=== PATIENT | female | born 1945 | race Caucasian/White ===

== ENCOUNTER 2021-02-24 08:20 | Outpatient (CLI) | payer MEDICARE ==
[2021-02-24] MEDS ORDERED: LIDOCAINE SOLN 4% 50 ML BOTTLE ONE (08:50)
== END 2021-02-24 23:59 | disposition home health service (06) ==
LOC: WOU 08:20
PROVIDERS: ATTEND Surgery
DX: S21.002D Unspecified open wound of left breast, subsequent encounter (principal); X58.XXXD Exposure to other specified factors, subsequent encounter; L59.8 Other specified disorders of the skin and subcutaneous tissue related to radiation; I89.0 Lymphedema, not elsewhere classified; Z85.3 Personal history of malignant neoplasm of breast
CPT/HCPCS: G0463

== ENCOUNTER 2021-03-10 08:10 | Outpatient (CLI) | payer MEDICARE | END 2021-03-10 23:59 | disposition home health service (06) | LOC: WOU 08:10 | PROVIDERS: ATTEND Surgery | DX: S21.002D Unspecified open wound of left breast, subsequent encounter (principal); Y84.2 Radiological procedure and radiotherapy as the cause of abnormal reaction of the patient, or of later complication, without mention of misadventure at the time of the procedure; L59.8 Other specified disorders of the skin and subcutaneous tissue related to radiation; I89.0 Lymphedema, not elsewhere classified; Z85.3 Personal history of malignant neoplasm of breast | CPT/HCPCS: G0463 ==

== ENCOUNTER 2021-03-24 08:40 | Outpatient (CLI) | payer MEDICARE | END 2021-03-24 23:59 | disposition home health service (06) | LOC: WOU 08:40 | PROVIDERS: ATTEND Surgery | DX: S21.002D Unspecified open wound of left breast, subsequent encounter (principal); Y84.2 Radiological procedure and radiotherapy as the cause of abnormal reaction of the patient, or of later complication, without mention of misadventure at the time of the procedure; L59.8 Other specified disorders of the skin and subcutaneous tissue related to radiation; I89.0 Lymphedema, not elsewhere classified; Z85.3 Personal history of malignant neoplasm of breast | CPT/HCPCS: G0463 ==

== ENCOUNTER 2021-04-07 08:30 | Outpatient (CLI) | payer MEDICARE | END 2021-04-07 23:59 | disposition home or self-care (01) | LOC: WOU 08:30 | PROVIDERS: ATTEND Surgery | DX: Z08 Encounter for follow-up examination after completed treatment for malignant neoplasm (principal); L59.8 Other specified disorders of the skin and subcutaneous tissue related to radiation; I89.0 Lymphedema, not elsewhere classified; Z85.3 Personal history of malignant neoplasm of breast; Z87.891 Personal history of nicotine dependence | CPT/HCPCS: G0463 ==

== ENCOUNTER 2021-05-05 08:20 | Outpatient (CLI) | payer MEDICARE | END 2021-05-05 23:59 | disposition home health service (06) | LOC: WOU 08:20 | PROVIDERS: ATTEND Surgery | DX: I89.0 Lymphedema, not elsewhere classified (principal); L59.8 Other specified disorders of the skin and subcutaneous tissue related to radiation; Z85.3 Personal history of malignant neoplasm of breast | CPT/HCPCS: G0463 ==

== ENCOUNTER 2021-07-07 08:30 | Outpatient (CLI) | payer MEDICARE | END 2021-07-07 23:59 | disposition home health service (06) | LOC: WOU 08:30 | PROVIDERS: ATTEND Surgery | DX: Z08 Encounter for follow-up examination after completed treatment for malignant neoplasm (principal); S21.002A Unspecified open wound of left breast, initial encounter; L59.8 Other specified disorders of the skin and subcutaneous tissue related to radiation; X58.XXXA Exposure to other specified factors, initial encounter; I89.0 Lymphedema, not elsewhere classified; Z85.3 Personal history of malignant neoplasm of breast; Z87.891 Personal history of nicotine dependence | CPT/HCPCS: G0463 ==

== ENCOUNTER 2021-08-25 08:40 | Outpatient (CLI) | payer MEDICARE | END 2021-08-25 23:59 | disposition home health service (06) | LOC: WOU 08:40 | PROVIDERS: ATTEND Surgery | DX: L03.313 Cellulitis of chest wall (principal); I89.0 Lymphedema, not elsewhere classified; L59.8 Other specified disorders of the skin and subcutaneous tissue related to radiation; S21.002A Unspecified open wound of left breast, initial encounter; X58.XXXA Exposure to other specified factors, initial encounter; Y92.89 Other specified places as the place of occurrence of the external cause; Z85.3 Personal history of malignant neoplasm of breast | CPT/HCPCS: G0463 ==

== ENCOUNTER 2022-05-25 13:20 | Outpatient (CLI) | payer MEDICARE | END 2022-05-25 23:59 | disposition home health service (06) | LOC: WOU 13:20 | PROVIDERS: ATTEND Surgery | DX: N64.4 Mastodynia (principal); I89.0 Lymphedema, not elsewhere classified; L59.8 Other specified disorders of the skin and subcutaneous tissue related to radiation; Z85.3 Personal history of malignant neoplasm of breast | CPT/HCPCS: G0463 ==

== ENCOUNTER 2023-10-17 20:51 | Inpatient (IN) | payer MEDICARE ==
[~2023-10-17] VITALS: Ht 154.9 cm; Wt 94.0 kg
[2023-10-17] MEDS ORDERED: methylPREDNISolone SOD SUCC 125 MG/2ML VIAL ONE (22:44)
[2023-10-17] MEDS: IPRATROPIUM NEB FS 0.5 MG/2.5 ML AMPUL.NEB NEB ONE (22:46)
[2023-10-17] MEDS: ALBUTEROL FS 2.5 MG/3 ML VIAL.NEB CONTNEB ONE (22:46)
[2023-10-17 22:50] VITALS: O2SAT 94
[2023-10-17] MEDS ORDERED: ALBUTEROL FS 2.5 MG/3 ML VIAL.NEB ONE (22:50)
[2023-10-17] MEDS ORDERED: IPRATROPIUM NEB FS 0.5 MG/2.5 ML AMPUL.NEB ONE (22:50)
[2023-10-17] MEDS: methylPREDNISolone SOD SUCC 125 MG/2ML VIAL IV ONE (22:57)
[2023-10-17 23:05] VITALS: O2SAT 100; O2SAT 99
[2023-10-17 23:06] VITALS: O2SAT 100
[2023-10-17 23:09] LABS: BASOPHILS # (AUTO) 0.1 K/uL (0.0-0.2); BASOPHILS % (AUTO) 0.6 % (0.0-2.0); EOSINOPHILS # (AUTO) 0.1 K/uL (0.0-0.7); EOSINOPHILS % (AUTO) 0.5 % (0.0-6.0); HEMATOCRIT 31 % (33-45); HEMOGLOBIN 10.1 g/dL (11.5-14.8); LYMPHOCYTES # (AUTO) 1.2 K/uL (0.8-4.8); MEAN CORPUSCULAR HEMOGLOBIN 31 PG (26.0-33.0); MEAN CORPUSCULAR HGB CONC 33 g/dl (31.0-36.0); MEAN CORPUSCULAR VOLUME 95 fL (82-100); MONOCYTES # (AUTO) 0.9 K/uL (0.1-1.30); MONOCYTES % (AUTO) 6.2 % (2.0-12.0); NEUTROPHILS # (AUTO) 11.6 K/uL (1.8-8.9); NEUTROPHILS % (AUTO) 83.7 % (43.0-81.0); PLATELET COUNT (AUTO) 271 K/uL (150-450); RED BLOOD CELL COUNT(AUTO) 3.29 MIL/uL (4.0-5.2); WHITE BLOOD COUNT (AUTO) 13.9 K/uL (4.3-11.0)
[2023-10-17 23:21] VITALS: O2SAT 100; O2SAT 99
[2023-10-17 23:23] LABS: CALCIUM, SERUM 8.2 mg/dL (8.5-10.1); CARBON DIOXIDE 34 mmol/L (21-32); CHLORIDE 105 mmol/L (98-107); CREATININE 0.7 mg/dL (0.6-1.3); GLUCOSE 114 mg/dL (74-106); SODIUM SERUM 140 mmol/L (136-145); UREA NITROGEN, BLOOD 19 mg/dL (7-18)
[2023-10-17 23:27] LABS: ALANINE AMINOTRANSFERASE 17 U/L (12-78); ALBUMIN 2.4 g/dL (3.4-5.0); ALKALINE PHOSPHATASE 70 U/L (46-116); ASPARTATE AMINOTRANSFERASE 8 U/L (15-37); BILIRUBIN,DIRECT 0.1 mg/dL (0.0-0.2); BILIRUBIN,TOTAL 0.2 mg/dL (0.2-1.0); TOTAL PROTEIN, SERUM 5.9 g/dL (6.4-8.2)
[2023-10-18] VITALS (11 sets, daily range): BP systolic 104–134; BP diastolic 56–69; TEMP 97.5–97.7; O2SAT 92–100
[2023-10-18] MEDS ORDERED: ONDANSETRON HCL/PF 4 MG/2 ML VIAL IVP PRN (01:00)
[2023-10-18] MEDS ORDERED: AZITHROMYCIN 500 MG in IV D5W 250 ML IV SCH (01:00)
[2023-10-18] MEDS ORDERED: MAG HYDROX/AL HYDROX/SIMETH 30 ML UDC PO PRN (01:00)
[2023-10-18] MEDS ORDERED: ZOLPIDEM TARTRATE 5 MG TABLET PO PRN (01:00)
[2023-10-18] MEDS ORDERED: ACETAMINOPHEN 325 MG TABLET PO PRN (01:00)
[2023-10-18] MEDS ORDERED: MAGNESIUM HYDROXIDE 30 ML UDC PO PRN (01:00)
[2023-10-18] MEDS ORDERED: Z GUARD REMEDY 4 OZ OINT TP PRN (01:00)
[2023-10-18] MEDS: LEVOFLOXACIN 500 MG /D5W 100ML 500 MG in PREMIX 1 EA IV SCH (01:30)
[2023-10-18] MEDS: ALBUTEROL FS 2.5 MG/3 ML VIAL.NEB NEB SCH (01:58)
[2023-10-18] MEDS: IPRATROPIUM NEB FS 0.5 MG/2.5 ML AMPUL.NEB NEB SCH (01:58)
[2023-10-18] MEDS: ENOXAPARIN SODIUM 40 MG/0.4 ML DISP.SYRIN SQ SCH (02:17)
[2023-10-18] MEDS ORDERED: LEVOFLOXACIN 500 MG /D5W 100ML 100 ML IV ONE (02:30)
[2023-10-18] MEDS: methylPREDNISolone SOD SUCC 40 MG/ML VIAL IV SCH (05:09)
[2023-10-18 06:45] LABS: BASOPHILS % (AUTO) 0.2 % (0.0-2.0); HEMATOCRIT 32 % (33-45); HEMOGLOBIN 10.7 g/dL (11.5-14.8); LYMPHOCYTES # (AUTO) 0.5 K/uL (0.8-4.8); LYMPHOCYTES % (AUTO) 3.8 % (20.0-44.0); MEAN CORPUSCULAR HEMOGLOBIN 31 PG (26.0-33.0); MEAN CORPUSCULAR HGB CONC 33 g/dl (31.0-36.0); MEAN CORPUSCULAR VOLUME 95 fL (82-100); MONOCYTES # (AUTO) 0.1 K/uL (0.1-1.30); MONOCYTES % (AUTO) 0.9 % (2.0-12.0); NEUTROPHILS # (AUTO) 11.6 K/uL (1.8-8.9); NEUTROPHILS % (AUTO) 95.1 % (43.0-81.0); PLATELET COUNT (AUTO) 323 K/uL (150-450); RED BLOOD CELL COUNT(AUTO) 3.41 MIL/uL (4.0-5.2); RED CELL DISTRIBUTION WIDTH 17.1 % (11.5-15.0); WHITE BLOOD COUNT (AUTO) 12.2 K/uL (4.3-11.0)
[2023-10-18 07:30] LABS: CHOLESTEROL 216 mg/dL (<200); HDL CHOLESTEROL 83 mg/dL (40-60); LDL 105 mg/dL (0-99); TRIGLYCERIDES 59 mg/dL (30-150)
[2023-10-18 07:37] LABS: ALANINE AMINOTRANSFERASE 18 U/L (12-78); ALBUMIN 2.5 g/dL (3.4-5.0); ALKALINE PHOSPHATASE 78 U/L (46-116); ASPARTATE AMINOTRANSFERASE 12 U/L (15-37); BILIRUBIN,TOTAL 0.1 mg/dL (0.2-1.0); CALCIUM, SERUM 8.6 mg/dL (8.5-10.1); CARBON DIOXIDE 25 mmol/L (21-32); CHLORIDE 104 mmol/L (98-107); CREATININE 0.6 mg/dL (0.6-1.3); GLUCOSE 141 mg/dL (74-106); MAGNESIUM 2.6 mg/dL (1.8-2.4); NT-PRO BNP 897 pg/mL (0-125); POTASSIUM 3.9 mmol/L (3.5-5.1); SODIUM SERUM 139 mmol/L (136-145); TOTAL PROTEIN, SERUM 6.5 g/dL (6.4-8.2); UREA NITROGEN, BLOOD 17 mg/dL (7-18)
[2023-10-18] MEDS: PANTOPRAZOLE 40 MG TABLET.DR PO SCH (08:10)
[2023-10-18] MEDS: FUROSEMIDE 20 MG/2 ML VIAL IV SCH (09:27)
[2023-10-18 09:38] LABS: THYROID STIMULATING HORMONE 0.49 uIU/mL (0.358-3.74)
[2023-10-18] MEDS ORDERED: LEVO75TA7 PO (09:55)
[2023-10-18] MEDS ORDERED: TAMO20TA4 PO (09:55)
[2023-10-18] MEDS ORDERED: OMEP20TA5 PO (09:55)
[2023-10-18] MEDS ORDERED: HYDR-3980 PO (09:55)
[2023-10-18] MEDS ORDERED: CALC-770 PO (09:55)
[2023-10-18] MEDS ORDERED: IRON18TA PO (09:55)
[2023-10-18] MEDS ORDERED: GABA300C PO (09:55)
[2023-10-18] MEDS ORDERED: SERT50TA12 PO (09:55)
[2023-10-18] MEDS: FLUTICASONE PROPIONATE 16 GM BOTTLE NS SCH (16:25)
[2023-10-18] MEDS: HYDROCODONE/APAP 10/325MG TABLET PO PRN (17:42)
[2023-10-18] MEDS: DOXYCYCLINE HYCLATE (100 MG) 100 MG TABLET PO SCH (21:35)
[2023-10-19] VITALS (11 sets, daily range): BP systolic 112–126; BP diastolic 61–72; TEMP 97.5–98.1; O2SAT 93–100
[2023-10-19 06:43] LABS: BASOPHILS % (AUTO) 0.1 % (0.0-2.0); HEMATOCRIT 30 % (33-45); HEMOGLOBIN 9.7 g/dL (11.5-14.8); LYMPHOCYTES # (AUTO) 0.6 K/uL (0.8-4.8); LYMPHOCYTES % (AUTO) 4.7 % (20.0-44.0); MEAN CORPUSCULAR HEMOGLOBIN 31 PG (26.0-33.0); MEAN CORPUSCULAR HGB CONC 33 g/dl (31.0-36.0); MEAN CORPUSCULAR VOLUME 94 fL (82-100); MONOCYTES # (AUTO) 0.5 K/uL (0.1-1.30); MONOCYTES % (AUTO) 4.3 % (2.0-12.0); NEUTROPHILS # (AUTO) 11.6 K/uL (1.8-8.9); NEUTROPHILS % (AUTO) 90.9 % (43.0-81.0); PLATELET COUNT (AUTO) 280 K/uL (150-450); RED BLOOD CELL COUNT(AUTO) 3.16 MIL/uL (4.0-5.2); RED CELL DISTRIBUTION WIDTH 16.9 % (11.5-15.0); WHITE BLOOD COUNT (AUTO) 12.7 K/uL (4.3-11.0)
[2023-10-19 06:54] LABS: CALCIUM, SERUM 8.1 mg/dL (8.5-10.1); CARBON DIOXIDE 34 mmol/L (21-32); CHLORIDE 104 mmol/L (98-107); CREATININE 0.6 mg/dL (0.6-1.3); GLUCOSE 137 mg/dL (74-106); MAGNESIUM 2.3 mg/dL (1.8-2.4); PHOSPHORUS 2.4 mg/dL (2.5-4.9); POTASSIUM 3.5 mmol/L (3.5-5.1); SODIUM SERUM 143 mmol/L (136-145); UREA NITROGEN, BLOOD 24 mg/dL (7-18)
[2023-10-19] MEDS: LEVOTHYROXINE SODIUM 75 MCG TABLET PO SCH (08:25)
[2023-10-19] MEDS: TAMOXIFEN CITRATE 10 MG TABLET PO SCH (10:18)
[2023-10-19] MEDS: SERTRALINE HCL 50 MG TABLET PO SCH (10:20)
[2023-10-19] MEDS: CALCIUM CARB 600MG /VIT D 1 EACH TABLET PO SCH (10:21)
[2023-10-19] MEDS: GABAPENTIN 300 MG CAPSULE PO SCH (10:21)
[2023-10-19] MEDS: GUAIFENESIN LA 600 MG TABLET.SA PO SCH (12:52)
[2023-10-19] MEDS: K PHOS NEUTRAL 250 MG TABLET PO ONE (16:40)
[2023-10-19 22:38] LABS: ABG BASE EXCESS 2.5 mmol/L (-2.0-2.0); ABG PCO2 49.9 mmHg (35.0-45.0); ABG PH 7.373 (7.350-7.450); ABG PO2 76.5 mmHg (75.0-100.0); AaDO2 64.3 mmHg; COHb 0.3 % (0.5-1.5); MetHb 0.3 % (0.0-1.5); O2Hb 93.4 % (94.0-97.0); SITE, ABG Right Radial; VENT MODE, BG NC 28%
[2023-10-20] VITALS (10 sets, daily range): BP systolic 110–141; BP diastolic 60–74; TEMP 97.5–98.1; O2SAT 94–100
[2023-10-20] MEDS ORDERED: ALBUT2 NEB (15:08)
[2023-10-20] MEDS ORDERED: METH4TAB17 PO (15:08)
[2023-10-20] MEDS ORDERED: LEVO250T59 PO (15:08)
[2023-10-20] MEDS ORDERED: DOXY100T2 PO (15:08)
[2023-10-20] MEDS ORDERED: FLUT16SP16 NS (15:08)
[2023-10-20] MEDS ORDERED: IPRA0.2S9 NEB (15:08)
[2023-10-20] MEDS ORDERED: LEVOFLOXACIN (250MG) 250 MG TABLET PO SCH (21:00)
== END 2023-10-20 17:20 | disposition home health service (06) | DRG 190 ==
LOC: ER 20:56 → TELE1 23:58 → MEDSG1 10-18 09:52
PROVIDERS: ADMIT Nurse Practitioner Family; ATTEND Nurse Practitioner Acute Care
DX: J44.1 Chronic obstructive pulmonary disease with (acute) exacerbation (principal); J15.9 Unspecified bacterial pneumonia; J98.11 Atelectasis; J44.0 Chronic obstructive pulmonary disease with (acute) lower respiratory infection; I50.9 Heart failure, unspecified; I11.0 Hypertensive heart disease with heart failure; Z99.81 Dependence on supplemental oxygen; Z88.1 Allergy status to other antibiotic agents; Z88.5 Allergy status to narcotic agent; E88.09 Other disorders of plasma-protein metabolism, not elsewhere classified; D64.9 Anemia, unspecified; E78.5 Hyperlipidemia, unspecified; Z68.39 Body mass index [BMI] 39.0-39.9, adult; Z87.891 Personal history of nicotine dependence; H69.90 Unspecified Eustachian tube disorder, unspecified ear; G47.33 Obstructive sleep apnea (adult) (pediatric); E61.1 Iron deficiency; R73.9 Hyperglycemia, unspecified; Z79.890 Hormone replacement therapy; Z79.899 Other long term (current) drug therapy; E66.9 Obesity, unspecified
CPT/HCPCS: 36415; 36600; 70220-TC; 71045-TC; 80048-TC; 80061-TC; 80076-TC; 82728-TC; 82803-TC; 83540-TC; 83735-TC; 83880; 84100-TC; 84439-TC; 84443-TC; 84484-TC; 85025-TC; 85378-TC; 93307-TC; 94760-TC; 94762-TC; 94799-TC; 97112-TC; 97116-TC; 97530-TC; A4216; A4223; G0378; J1650; J1940; J1956; J2919; J7030; J7060

== ENCOUNTER 2024-02-18 19:58 | Inpatient (IN) | payer MEDICARE ==
[~2024-02-18] VITALS: Ht 157.5 cm; Wt 97.5 kg
[~2024-02-18 19:58] MED LIST: ALBUT2 NEB; CALC-770 PO; DOXY100T2 PO; FLUT16SP16 NS; GABA300C PO; HYDR-3980 PO; IPRA0.2S9 NEB; IRON18TA PO; LEVO250T59 PO; LEVO75TA7 PO; METH4TAB17 PO; OMEP20TA5 PO; SERT50TA12 PO; TAMO20TA4 PO
[2024-02-18] MEDS ORDERED: ACETAMINOPHEN ES 500 MG TABLET ONE (20:13)
[2024-02-18] MEDS: ACETAMINOPHEN ES 500 MG TABLET PO ONE (20:13)
[2024-02-18] MEDS ORDERED: LEVOFLOXACIN 750 MG /D5W 150ML 150 ML IV ONE (20:50)
[2024-02-18 20:54] LABS: BASOPHILS % (AUTO) 0.6 % (0.0-2.0); EOSINOPHILS # (AUTO) 0.2 K/uL (0.0-0.7); EOSINOPHILS % (AUTO) 2.5 % (0.0-6.0); HEMATOCRIT 26 % (33-45); HEMOGLOBIN 8.8 g/dL (11.5-14.8); LYMPHOCYTES % (AUTO) 14.7 % (20.0-44.0); MEAN CORPUSCULAR HEMOGLOBIN 32 PG (26.0-33.0); MEAN CORPUSCULAR HGB CONC 33 g/dl (31.0-36.0); MEAN CORPUSCULAR VOLUME 97 fL (82-100); MONOCYTES # (AUTO) 0.7 K/uL (0.1-1.30); MONOCYTES % (AUTO) 9.3 % (2.0-12.0); NEUTROPHILS # (AUTO) 5.2 K/uL (1.8-8.9); NEUTROPHILS % (AUTO) 72.9 % (43.0-81.0); PLATELET COUNT (AUTO) 280 K/uL (150-450); RED BLOOD CELL COUNT(AUTO) 2.74 MIL/uL (4.0-5.2); WHITE BLOOD COUNT (AUTO) 7.1 K/uL (4.3-11.0)
[2024-02-18] MEDS: LEVOFLOXACIN 750 MG /D5W 150ML 150 ML IV ONE (21:04)
[2024-02-18] MEDS: IV NS 0.9% 1,000 ML BAG IV ONE (21:04)
[2024-02-18 21:07] LABS: INR 1.01 (0.91-1.10); PARTIAL THROMBOPLASTIN TIME 31.5 SEC (24.3-34.3); PROTHROMBIN TIME 10.7 SECS (9.2-11.1)
[2024-02-18 21:11] LABS: LACTIC ACID 0.9 mmol/L (0.4-2.0)
[2024-02-18 21:19] LABS: ALANINE AMINOTRANSFERASE 19 U/L (12-78); ALBUMIN 1.9 g/dL (3.4-5.0); ALKALINE PHOSPHATASE 87 U/L (46-116); ASPARTATE AMINOTRANSFERASE 12 U/L (15-37); BILIRUBIN,DIRECT 0.1 mg/dL (0.0-0.2); BILIRUBIN,TOTAL 0.1 mg/dL (0.2-1.0); CALCIUM, SERUM 8.3 mg/dL (8.5-10.1); CARBON DIOXIDE 37 mmol/L (21-32); CHLORIDE 104 mmol/L (98-107); CREATININE 0.7 mg/dL (0.6-1.3); GLUCOSE 103 mg/dL (74-106); POTASSIUM 4.4 mmol/L (3.5-5.1); SODIUM SERUM 140 mmol/L (136-145); TOTAL PROTEIN, SERUM 5.3 g/dL (6.4-8.2); UREA NITROGEN, BLOOD 15 mg/dL (7-18)
[2024-02-18 22:05] LABS: APPEARANCE,URINE CLEAR (CLEAR); BILIRUBIN,URINE NEGATIVE (NEGATIVE); BLOOD, URINE NEGATIVE Ery/uL (NEGATIVE); COLOR,URINE YELLOW (YELLOW); KETONES,URINE NEGATIVE (NEGATIVE); LEUKOCYTE ESTERASE ,URINE TRACE (NEGATIVE); NITRITE, URINE POSITIVE (NEGATIVE); PROTEIN,URINE NEGATIVE (NEGATIVE); UGLUCOSE NEGATIVE (NEGATIVE); UROBILINOGEN,URINE 0.2 EU/dL (0.2)
[2024-02-18 22:18] LABS: ADD URINE CULTURE YES; BACTERIA,URINE 2+ /HPF (None Seen)
[2024-02-19] VITALS (11 sets, daily range): BP systolic 99–116; BP diastolic 40–67; TEMP 97.7–98.2; O2SAT 94–100
[2024-02-19] MEDS ORDERED: MAGNESIUM HYDROXIDE 30 ML UDC PO PRN
[2024-02-19] MEDS ORDERED: Z GUARD REMEDY 4 OZ OINT TP PRN
[2024-02-19] MEDS: DOXYCYCLINE HYCLATE (100 MG) 100 MG TABLET PO SCH (01:08)
[2024-02-19] MEDS: ENOXAPARIN SODIUM 40 MG/0.4 ML DISP.SYRIN SQ SCH (01:09)
[2024-02-19] MEDS: HYDROCODONE/APAP 10/325MG TABLET PO PRN (02:13)
[2024-02-19] MEDS ORDERED: ALBUTEROL FS 2.5 MG/0.5 ML VIAL.NEB NEB PRN (03:00)
[2024-02-19] MEDS: ALBUTEROL FS 2.5 MG/3 ML VIAL.NEB CONTNEB SCH (07:28)
[2024-02-19] MEDS: IPRATROPIUM NEB FS 0.5 MG/2.5 ML AMPUL.NEB NEB SCH (07:28)
[2024-02-19 08:13] LABS: BASOPHILS % (AUTO) 0.7 % (0.0-2.0); EOSINOPHILS # (AUTO) 0.2 K/uL (0.0-0.7); EOSINOPHILS % (AUTO) 3.1 % (0.0-6.0); HEMATOCRIT 25 % (33-45); HEMOGLOBIN 8.3 g/dL (11.5-14.8); LYMPHOCYTES # (AUTO) 1.1 K/uL (0.8-4.8); MEAN CORPUSCULAR HEMOGLOBIN 32 PG (26.0-33.0); MEAN CORPUSCULAR HGB CONC 33 g/dl (31.0-36.0); MEAN CORPUSCULAR VOLUME 97 fL (82-100); MONOCYTES # (AUTO) 0.6 K/uL (0.1-1.30); MONOCYTES % (AUTO) 11.1 % (2.0-12.0); NEUTROPHILS # (AUTO) 3.6 K/uL (1.8-8.9); NEUTROPHILS % (AUTO) 65.1 % (43.0-81.0); PLATELET COUNT (AUTO) 283 K/uL (150-450); RED BLOOD CELL COUNT(AUTO) 2.62 MIL/uL (4.0-5.2); RED CELL DISTRIBUTION WIDTH 16.9 % (11.5-15.0); WHITE BLOOD COUNT (AUTO) 5.5 K/uL (4.3-11.0)
[2024-02-19 08:26] LABS: CALCIUM, SERUM 8.1 mg/dL (8.5-10.1); CARBON DIOXIDE 34 mmol/L (21-32); CHLORIDE 106 mmol/L (98-107); CREATININE 0.5 mg/dL (0.6-1.3); GLUCOSE 88 mg/dL (74-106); MAGNESIUM 1.9 mg/dL (1.8-2.4); PHOSPHORUS 3.1 mg/dL (2.5-4.9); POTASSIUM 4.1 mmol/L (3.5-5.1); SODIUM SERUM 142 mmol/L (136-145); UREA NITROGEN, BLOOD 12 mg/dL (7-18)
[2024-02-19] MEDS ORDERED: TRELEGY ELLIPTA IH (08:31)
[2024-02-19] MEDS ORDERED: METO25TA4 PO (08:31)
[2024-02-19] MEDS ORDERED: ALBU90AE2 INH (08:31)
[2024-02-19] MEDS ORDERED: LOSA50TA39 PO (08:31)
[2024-02-19] MEDS ORDERED: OMEP40CA21 PO (08:31)
[2024-02-19] MEDS ORDERED: IPRA3AMP23 IH (08:31)
[2024-02-19 08:33] LABS: CHOLESTEROL 164 mg/dL (<200); HDL CHOLESTEROL 66 mg/dL (40-60); LDL 83 mg/dL (0-99); TRIGLYCERIDES 112 mg/dL (30-150)
[2024-02-19] MEDS: PANTOPRAZOLE 40 MG TABLET.DR PO SCH (08:51)
[2024-02-19] MEDS: GABAPENTIN 300 MG CAPSULE PO SCH (12:30)
[2024-02-19] MEDS ORDERED: HYDROCODONE/APAP 10/325MG TABLET PO PRN (12:30)
[2024-02-19] MEDS ORDERED: ALBUTEROL FS 2.5 MG/3 ML VIAL.NEB NEB SCH (13:00)
[2024-02-19] MEDS ORDERED: IPRATROPIUM NEB FS 0.5 MG/2.5 ML AMPUL.NEB NEB SCH (13:00)
[2024-02-19] MEDS: FLUTICASONE PROPIONATE 16 GM BOTTLE NS SCH (16:12)
[2024-02-19] MEDS: LEVOFLOXACIN 500 MG /D5W 100ML 500 MG in PREMIX 1 EA IV SCH (20:11)
[2024-02-20] VITALS (12 sets, daily range): BP systolic 100–120; BP diastolic 52–75; TEMP 97–98.2; O2SAT 90–98
[2024-02-20] MEDS: ACETAMINOPHEN 325 MG TABLET PO PRN (06:57)
[2024-02-20 07:08] LABS: BASOPHILS % (AUTO) 0.7 % (0.0-2.0); EOSINOPHILS # (AUTO) 0.2 K/uL (0.0-0.7); EOSINOPHILS % (AUTO) 3.8 % (0.0-6.0); HEMATOCRIT 27 % (33-45); HEMOGLOBIN 8.7 g/dL (11.5-14.8); LYMPHOCYTES # (AUTO) 0.9 K/uL (0.8-4.8); MEAN CORPUSCULAR HEMOGLOBIN 32 PG (26.0-33.0); MEAN CORPUSCULAR HGB CONC 32 g/dl (31.0-36.0); MEAN CORPUSCULAR VOLUME 98 fL (82-100); MONOCYTES # (AUTO) 0.7 K/uL (0.1-1.30); MONOCYTES % (AUTO) 12.6 % (2.0-12.0); NEUTROPHILS # (AUTO) 3.6 K/uL (1.8-8.9); NEUTROPHILS % (AUTO) 65.9 % (43.0-81.0); PLATELET COUNT (AUTO) 325 K/uL (150-450); RED BLOOD CELL COUNT(AUTO) 2.75 MIL/uL (4.0-5.2); RED CELL DISTRIBUTION WIDTH 16.8 % (11.5-15.0); WHITE BLOOD COUNT (AUTO) 5.5 K/uL (4.3-11.0)
[2024-02-20 07:13] LABS: CALCIUM, SERUM 8.2 mg/dL (8.5-10.1); CARBON DIOXIDE 33 mmol/L (21-32); CHLORIDE 109 mmol/L (98-107); CREATININE 0.5 mg/dL (0.6-1.3); GLUCOSE 101 mg/dL (74-106); SODIUM SERUM 148 mmol/L (136-145); UREA NITROGEN, BLOOD 9 mg/dL (7-18)
[2024-02-20] MEDS: CALCIUM CARB 600MG /VIT D 1 EACH TABLET PO SCH (08:50)
[2024-02-20] MEDS: SERTRALINE HCL 50 MG TABLET PO SCH (08:50)
[2024-02-20] MEDS ORDERED: Medication Not On Formulary EA ([Trelegy Ellipta] 1 PUFF) IH SCH (09:00)
[2024-02-20] MEDS ORDERED: METOPROLOL SUCCINATE 25 MG TAB.SR.24H PO SCH (09:00)
[2024-02-20] MEDS ORDERED: Medication Not On Formulary EA (Omeprazole 40 MG) PO SCH (09:00)
[2024-02-20] MEDS: LOSARTAN POTASSIUM 50 MG TABLET PO SCH (09:00)
[2024-02-20] MEDS: LEVOTHYROXINE SODIUM 75 MCG TABLET PO SCH (09:02)
[2024-02-20] MEDS: TAMOXIFEN CITRATE 10 MG TABLET PO SCH (09:07)
[2024-02-20] MEDS: methylPREDNISolone SOD SUCC 40 MG/ML VIAL IV SCH (10:58)
[2024-02-20 12:22] LABS: ABG BASE EXCESS 5.6 mmol/L (-2.0-3.0); ABG OXYGEN SATURATION 93.1 % (94.0-98.0); ABG PCO2 44.5 mmHg (32.0-45.0); ABG PH 7.449 (7.350-7.450); ABG PO2 65.2 mmHg (83.0-108.0); ABG TOTAL HEMOGLOBIN 9.5 G/dL (12.0-16.0); COHb 0.2 % (0.5-1.5); MetHb 0.3 % (0.0-1.5); O2Hb 92.6 % (94.0-97.0); SITE, ABG RIGHT RADIAL
[2024-02-20] MEDS: ENSURE ENLIVE 237 ML LIQUID (VANILLA) PO SCH (17:22)
[2024-02-21] VITALS (12 sets, daily range): BP systolic 105–128; BP diastolic 60–70; TEMP 97.7–97.9; O2SAT 90–99
[2024-02-21 08:27] LABS: BASOPHILS % (AUTO) 0.1 % (0.0-2.0); EOSINOPHILS % (AUTO) 0.1 % (0.0-6.0); HEMATOCRIT 28 % (33-45); HEMOGLOBIN 8.9 g/dL (11.5-14.8); LYMPHOCYTES # (AUTO) 0.8 K/uL (0.8-4.8); LYMPHOCYTES % (AUTO) 9.8 % (20.0-44.0); MEAN CORPUSCULAR HEMOGLOBIN 31 PG (26.0-33.0); MEAN CORPUSCULAR HGB CONC 32 g/dl (31.0-36.0); MEAN CORPUSCULAR VOLUME 97 fL (82-100); MONOCYTES # (AUTO) 0.5 K/uL (0.1-1.30); MONOCYTES % (AUTO) 7.2 % (2.0-12.0); NEUTROPHILS # (AUTO) 6.3 K/uL (1.8-8.9); NEUTROPHILS % (AUTO) 82.8 % (43.0-81.0); PLATELET COUNT (AUTO) 404 K/uL (150-450); RED BLOOD CELL COUNT(AUTO) 2.86 MIL/uL (4.0-5.2); RED CELL DISTRIBUTION WIDTH 16.3 % (11.5-15.0); WHITE BLOOD COUNT (AUTO) 7.6 K/uL (4.3-11.0)
[2024-02-21 08:53] LABS: CALCIUM, SERUM 8.3 mg/dL (8.5-10.1); CARBON DIOXIDE 34 mmol/L (21-32); CHLORIDE 105 mmol/L (98-107); CREATININE 0.6 mg/dL (0.6-1.3); GLUCOSE 106 mg/dL (74-106); POTASSIUM 4.1 mmol/L (3.5-5.1); SODIUM SERUM 142 mmol/L (136-145); UREA NITROGEN, BLOOD 13 mg/dL (7-18)
[2024-02-21 15:25] LABS: HIV-1 p24 ANTIGEN NON REACTIVE (NONREACTIVE); HIV-1/2 ANTIBODY NON REACTIVE (NONREACTIVE)
[2024-02-22] VITALS (11 sets, daily range): BP systolic 115–145; BP diastolic 66–88; TEMP 97.7–98.9; O2SAT 90–99
[2024-02-22] MEDS: ALBUTEROL FS 2.5 MG/3 ML VIAL.NEB NEB PRN (00:45)
[2024-02-22] MEDS: IPRATROPIUM NEB FS 0.5 MG/2.5 ML AMPUL.NEB NEB PRN (00:46)
[2024-02-22 04:10] LABS: RAPID PLASMA REAGIN QUAL. Non Reactive (Non Reactive)
[2024-02-22 05:13] LABS: HEPATITIS B CORE AB, TOTAL Negative (Negative)
[2024-02-22] MEDS: LEVOFLOXACIN (250MG) 250 MG TABLET PO SCH (20:30)
[2024-02-23] VITALS (11 sets, daily range): BP systolic 116–140; BP diastolic 64–83; TEMP 97.3–98.4; O2SAT 88–99
[2024-02-23] MEDS ORDERED: PRED20TA PO (09:41)
[2024-02-23] MEDS ORDERED: LEVO250T59 PO (09:41)
[2024-02-24 07:28] VITALS: O2SAT 99
[2024-02-24 07:43] VITALS: O2SAT 99
[2024-02-24 08:00] VITALS: BP 133/69; TEMP 98.5; O2SAT 96
[2024-02-24 09:17] VITALS: BP 133/82
[2024-02-24] MEDS ORDERED: CEFD300C3 PO (09:52)
[2024-02-24 13:17] VITALS: O2SAT 98
[2024-02-24 13:32] VITALS: O2SAT 99
[2024-02-24] MEDS ORDERED: SULF1TAB48 PO (14:19)
== END 2024-02-24 15:00 | disposition home health service (06) | DRG 689 ==
LOC: ER 20:01 → TELE1 02-19 00:04 → MEDSG1 02-19 14:53
PROVIDERS: ADMIT Nurse Practitioner Family; ATTEND Internal Medicine
DX: N39.0 Urinary tract infection, site not specified (principal); E43 Unspecified severe protein-calorie malnutrition; J44.1 Chronic obstructive pulmonary disease with (acute) exacerbation; J44.0 Chronic obstructive pulmonary disease with (acute) lower respiratory infection; E66.9 Obesity, unspecified; Z68.38 Body mass index [BMI] 38.0-38.9, adult; Z99.81 Dependence on supplemental oxygen; I10 Essential (primary) hypertension; Z90.710 Acquired absence of both cervix and uterus; Z85.3 Personal history of malignant neoplasm of breast; Z88.5 Allergy status to narcotic agent; Z88.1 Allergy status to other antibiotic agents; Z79.890 Hormone replacement therapy; Z79.899 Other long term (current) drug therapy; Z79.51 Long term (current) use of inhaled steroids; E03.9 Hypothyroidism, unspecified; E78.5 Hyperlipidemia, unspecified; D64.9 Anemia, unspecified; E88.09 Other disorders of plasma-protein metabolism, not elsewhere classified; R53.82 Chronic fatigue, unspecified; R32 Unspecified urinary incontinence; G62.0 Drug-induced polyneuropathy; T45.1X5A Adverse effect of antineoplastic and immunosuppressive drugs, initial encounter; Z87.891 Personal history of nicotine dependence; G47.33 Obstructive sleep apnea (adult) (pediatric); B96.89 Other specified bacterial agents as the cause of diseases classified elsewhere; J20.9 Acute bronchitis, unspecified; R60.9 Edema, unspecified; M79.672 Pain in left foot
CPT/HCPCS: 36415; 36600; 71045-TC; 80048-TC; 80061-TC; 80076-TC; 81001; 82803-TC; 83605-TC; 83735-TC; 84100-TC; 84484-TC; 85025-TC; 85730-TC; 86480; 86592; 86593; 86704; 86803; 87040-TC; 87086-TC; 87340; 87806; 87899; 94760-TC; 94762-TC; 94799-TC; 97110-TC; 97112-TC; 97116-TC; 97530-TC; 97535-TC; A4216; A4223; G0378; J1650; J1956; J2919; J7030; J7050

== ENCOUNTER 2024-03-09 05:37 | Inpatient (IN) | payer MEDICARE ==
[~2024-03-09] VITALS: Ht 157.5 cm; Wt 95.0 kg
[2024-03-09] VITALS (7 sets, daily range): BP systolic 103; BP diastolic 59; TEMP 97.9; O2SAT 90–99
[~2024-03-09 05:37] MED LIST changes: +ALBU90AE2 INH; -ALBUT2 NEB; +CEFD300C3 PO; -DOXY100T2 PO; -IPRA0.2S9 NEB; +IPRA3AMP23 IH; -IRON18TA PO; +LOSA50TA39 PO; -METH4TAB17 PO; +METO25TA4 PO; -OMEP20TA5 PO; +OMEP40CA21 PO; +PRED20TA PO; +SULF1TAB48 PO; +TRELEGY ELLIPTA IH
[2024-03-09 06:12] LABS: BASOPHILS # (AUTO) 0.1 K/uL (0.0-0.2); BASOPHILS % (AUTO) 0.3 % (0.0-2.0); EOSINOPHILS % (AUTO) 0.2 % (0.0-6.0); HEMATOCRIT 32 % (33-45); HEMOGLOBIN 10.4 g/dL (11.5-14.8); LYMPHOCYTES # (AUTO) 0.5 K/uL (0.8-4.8); LYMPHOCYTES % (AUTO) 2.4 % (20.0-44.0); MEAN CORPUSCULAR HEMOGLOBIN 32 PG (26.0-33.0); MEAN CORPUSCULAR HGB CONC 33 g/dl (31.0-36.0); MEAN CORPUSCULAR VOLUME 96 fL (82-100); MONOCYTES # (AUTO) 1.2 K/uL (0.1-1.30); MONOCYTES % (AUTO) 5.8 % (2.0-12.0); NEUTROPHILS # (AUTO) 18.3 K/uL (1.8-8.9); NEUTROPHILS % (AUTO) 91.3 % (43.0-81.0); PLATELET COUNT (AUTO) 177 K/uL (150-450); RED BLOOD CELL COUNT(AUTO) 3.31 MIL/uL (4.0-5.2); RED CELL DISTRIBUTION WIDTH 15.9 % (11.5-15.0)
[2024-03-09 06:25] LABS: INR 0.97 (0.91-1.10); PROTHROMBIN TIME 10.3 SECS (9.2-11.1)
[2024-03-09] MEDS ORDERED: ACETAMINOPHEN 650 MG/SUPP.RECT RC ONE (06:26)
[2024-03-09 06:27] LABS: CALCIUM, SERUM 8.7 mg/dL (8.5-10.1); CARBON DIOXIDE 32 mmol/L (21-32); CHLORIDE 104 mmol/L (98-107); GLUCOSE 137 mg/dL (74-106); POTASSIUM 3.8 mmol/L (3.5-5.1); SODIUM SERUM 139 mmol/L (136-145)
[2024-03-09 06:28] LABS: ALANINE AMINOTRANSFERASE 11 U/L (12-78); ALBUMIN 2.7 g/dL (3.4-5.0); ALKALINE PHOSPHATASE 95 U/L (46-116); ASPARTATE AMINOTRANSFERASE 10 U/L (15-37); BILIRUBIN,DIRECT 0.1 mg/dL (0.0-0.2); BILIRUBIN,TOTAL 0.1 mg/dL (0.2-1.0); CREATININE 0.7 mg/dL (0.6-1.3); TOTAL PROTEIN, SERUM 6.1 g/dL (6.4-8.2); UREA NITROGEN, BLOOD 17 mg/dL (7-18)
[2024-03-09 06:31] LABS: ABG BASE EXCESS 5.8 mmol/L (-2.0-3.0); ABG OXYGEN SATURATION 99.5 % (94.0-98.0); ABG PCO2 62.6 mmHg (32.0-45.0); ABG PO2 404.8 mmHg (83.0-108.0); COHb 0.3 % (0.5-1.5); MetHb 0.3 % (0.0-1.5); O2Hb 98.9 % (94.0-97.0)
[2024-03-09] MEDS: ACETAMINOPHEN 650 MG/SUPP.RECT RC ONE (06:36)
[2024-03-09] MEDS: LEVOFLOXACIN 750 MG /D5W 150ML PIGGYBACK IV ONE (08:25)
[2024-03-09] MEDS: LEVOFLOXACIN 500 MG /D5W 100ML 500 MG in PREMIX 1 EA IV ONE (08:32)
[2024-03-09 09:17] LABS: APPEARANCE,URINE CLEAR (CLEAR); BILIRUBIN,URINE NEGATIVE (NEGATIVE); BLOOD, URINE NEGATIVE Ery/uL (NEGATIVE); COLOR,URINE YELLOW (YELLOW); KETONES,URINE NEGATIVE (NEGATIVE); LEUKOCYTE ESTERASE ,URINE NEGATIVE (NEGATIVE); NITRITE, URINE NEGATIVE (NEGATIVE); PROTEIN,URINE NEGATIVE (NEGATIVE); UGLUCOSE NEGATIVE (NEGATIVE); UROBILINOGEN,URINE 0.2 EU/dL (0.2)
[2024-03-09] MEDS: LEVOFLOXACIN 250 MG /D5W 50 ML 250 MG in PREMIX 1 EA IV SCH (09:30)
[2024-03-09] MEDS: LEVOFLOXACIN 500 MG /D5W 100ML 100 ML IV SCH (12:00)
[2024-03-09] MEDS ORDERED: IPRATROPIUM NEB FS 0.5 MG/2.5 ML AMPUL.NEB ONE ×3 (12:08→19:53)
[2024-03-09] MEDS ORDERED: ALBUTEROL FS 2.5 MG/0.5 ML VIAL.NEB ONE ×2 (12:09→14:26)
[2024-03-09] MEDS: ALBUTEROL HALF STRENGTH 1.25 MG/3 ML VIAL.NEB NEB SCH (12:10)
[2024-03-09] MEDS: IPRATROPIUM NEB FS 0.5 MG/2.5 ML AMPUL.NEB NEB SCH ×2 (12:10→14:29)
[2024-03-09] MEDS ORDERED: ENOXAPARIN SODIUM 40 MG/0.4 ML DISP.SYRIN SQ ONE (12:37)
[2024-03-09] MEDS: ENOXAPARIN SODIUM 40 MG/0.4 ML DISP.SYRIN SQ SCH (12:47)
[2024-03-09] MEDS ORDERED: ALBUTEROL FS 2.5 MG/0.5 ML VIAL.NEB NEB PRN (13:00)
[2024-03-09] MEDS ORDERED: ONDANSETRON HCL/PF 4 MG/2 ML VIAL IVP PRN (13:00)
[2024-03-09] MEDS ORDERED: ACETAMINOPHEN 325 MG TABLET PO PRN (13:00)
[2024-03-09] MEDS ORDERED: GABAPENTIN 300 MG CAPSULE ONE (13:30)
[2024-03-09] MEDS ORDERED: methylPREDNISolone SOD SUCC 125 MG/2ML VIAL ONE (13:33)
[2024-03-09] MEDS: methylPREDNISolone SOD SUCC 125 MG/2ML VIAL IV SCH (13:47)
[2024-03-09] MEDS: GABAPENTIN 300 MG CAPSULE PO SCH (13:49)
[2024-03-09] MEDS ORDERED: ALBUTEROL FS 2.5 MG/3 ML VIAL.NEB ONE ×3 (14:24→19:53)
[2024-03-09] MEDS: ALBUTEROL FS 2.5 MG/3 ML VIAL.NEB NEB SCH (14:29)
[2024-03-09] MEDS ORDERED: HYDROCODONE/APAP 10/325MG TABLET ONE (16:32)
[2024-03-09] MEDS: HYDROCODONE/APAP 10/325MG TABLET PO PRN (16:42)
[2024-03-09] MEDS: HEPARIN SODIUM, PORCINE 5000 UNITS/1 ML VIAL SQ SCH (21:42)
[2024-03-10] VITALS (12 sets, daily range): BP systolic 93–128; BP diastolic 48–80; TEMP 97.6–98.3; O2SAT 92–98
[2024-03-10] MEDS: LEVOTHYROXINE SODIUM 75 MCG TABLET PO SCH (08:12)
[2024-03-10] MEDS: TAMOXIFEN CITRATE 10 MG TABLET PO SCH (08:12)
[2024-03-10] MEDS: SERTRALINE HCL 50 MG TABLET PO SCH (08:13)
[2024-03-10] MEDS: METOPROLOL SUCCINATE 25 MG TAB.SR.24H PO SCH (08:28)
[2024-03-10] MEDS: LOSARTAN POTASSIUM 50 MG TABLET PO SCH (08:29)
[2024-03-10 08:34] LABS: HEMATOCRIT 28 % (33-45); HEMOGLOBIN 9.3 g/dL (11.5-14.8); LYMPHOCYTES # (AUTO) 0.5 K/uL (0.8-4.8); LYMPHOCYTES % (AUTO) 3.5 % (20.0-44.0); MEAN CORPUSCULAR HEMOGLOBIN 31 PG (26.0-33.0); MEAN CORPUSCULAR HGB CONC 33 g/dl (31.0-36.0); MEAN CORPUSCULAR VOLUME 95 fL (82-100); MONOCYTES # (AUTO) 0.2 K/uL (0.1-1.30); MONOCYTES % (AUTO) 1.5 % (2.0-12.0); NEUTROPHILS # (AUTO) 13.5 K/uL (1.8-8.9); PLATELET COUNT (AUTO) 185 K/uL (150-450); RED BLOOD CELL COUNT(AUTO) 2.98 MIL/uL (4.0-5.2); RED CELL DISTRIBUTION WIDTH 15.8 % (11.5-15.0); WHITE BLOOD COUNT (AUTO) 14.2 K/uL (4.3-11.0)
[2024-03-10 08:54] LABS: ALBUMIN 2.3 g/dL (3.4-5.0); CALCIUM, SERUM 8.4 mg/dL (8.5-10.1); CREATININE 0.7 mg/dL (0.6-1.3); PHOSPHORUS 2.3 mg/dL (2.5-4.9); POTASSIUM 3.5 mmol/L (3.5-5.1); TOTAL PROTEIN, SERUM 5.6 g/dL (6.4-8.2)
[2024-03-10] MEDS: IV NS 0.9% 250 ML IV PRN (12:33)
[2024-03-10] MEDS: K PHOS NEUTRAL 250 MG TABLET PO ONE (16:28)
[2024-03-11] VITALS (9 sets, daily range): BP systolic 121–128; BP diastolic 62–76; TEMP 98.1–98.2; O2SAT 94–99
[2024-03-11 12:02] LABS: BASOPHILS # (AUTO) 0.1 K/uL (0.0-0.2); BASOPHILS % (AUTO) 0.4 % (0.0-2.0); HEMATOCRIT 32 % (33-45); HEMOGLOBIN 10.6 g/dL (11.5-14.8); LYMPHOCYTES # (AUTO) 0.4 K/uL (0.8-4.8); LYMPHOCYTES % (AUTO) 2.5 % (20.0-44.0); MEAN CORPUSCULAR HEMOGLOBIN 32 PG (26.0-33.0); MEAN CORPUSCULAR HGB CONC 33 g/dl (31.0-36.0); MEAN CORPUSCULAR VOLUME 97 fL (82-100); MONOCYTES # (AUTO) 0.5 K/uL (0.1-1.30); MONOCYTES % (AUTO) 3.2 % (2.0-12.0); NEUTROPHILS # (AUTO) 15.6 K/uL (1.8-8.9); NEUTROPHILS % (AUTO) 93.9 % (43.0-81.0); PLATELET COUNT (AUTO) 222 K/uL (150-450); RED BLOOD CELL COUNT(AUTO) 3.34 MIL/uL (4.0-5.2); RED CELL DISTRIBUTION WIDTH 15.7 % (11.5-15.0); WHITE BLOOD COUNT (AUTO) 16.6 K/uL (4.3-11.0)
[2024-03-11 12:09] LABS: CALCIUM, SERUM 8.7 mg/dL (8.5-10.1); CREATININE 0.7 mg/dL (0.6-1.3); MAGNESIUM 2.2 mg/dL (1.8-2.4); PHOSPHORUS 2.4 mg/dL (2.5-4.9); POTASSIUM 3.7 mmol/L (3.5-5.1)
[2024-03-11] MEDS: methylPREDNISolone SOD SUCC 125 MG/2ML VIAL IV SCH (18:12)
[2024-03-11] MEDS: K PHOS NEUTRAL 250 MG TABLET PO ONE (18:15)
[2024-03-12] VITALS (10 sets, daily range): BP systolic 120–139; BP diastolic 57–81; TEMP 97.3–98.1; O2SAT 92–99
[2024-03-12 07:35] LABS: HEMATOCRIT 30 % (33-45); HEMOGLOBIN 9.9 g/dL (11.5-14.8); LYMPHOCYTES # (AUTO) 0.7 K/uL (0.8-4.8); LYMPHOCYTES % (AUTO) 5.3 % (20.0-44.0); MEAN CORPUSCULAR HEMOGLOBIN 31 PG (26.0-33.0); MEAN CORPUSCULAR HGB CONC 33 g/dl (31.0-36.0); MEAN CORPUSCULAR VOLUME 96 fL (82-100); MONOCYTES # (AUTO) 0.4 K/uL (0.1-1.30); MONOCYTES % (AUTO) 2.9 % (2.0-12.0); NEUTROPHILS % (AUTO) 91.8 % (43.0-81.0); PLATELET COUNT (AUTO) 213 K/uL (150-450); RED BLOOD CELL COUNT(AUTO) 3.17 MIL/uL (4.0-5.2); RED CELL DISTRIBUTION WIDTH 15.8 % (11.5-15.0); WHITE BLOOD COUNT (AUTO) 14.2 K/uL (4.3-11.0)
[2024-03-12 07:50] LABS: CALCIUM, SERUM 8.6 mg/dL (8.5-10.1); CREATININE 0.6 mg/dL (0.6-1.3); MAGNESIUM 2.3 mg/dL (1.8-2.4); PHOSPHORUS 3.4 mg/dL (2.5-4.9); POTASSIUM 3.8 mmol/L (3.5-5.1)
[2024-03-12 08:02] LABS: RHEUMATOID FACTOR SCREEN NEGATIVE (NEGATIVE)
[2024-03-12 08:07] LABS: C-REACTIVE PROTEIN 2.7 mg/dL (0.0-0.30); THYROID STIMULATING HORMONE 1.1 uIU/mL (0.358-3.74)
[2024-03-12] MEDS ORDERED: LEVOFLOXACIN 750 MG /D5W 150ML 750 MG in PREMIX 1 EA IV SCH (12:00)
[2024-03-12] MEDS: LEVOFLOXACIN (250MG) 250 MG TABLET PO SCH (14:25)
[2024-03-13] VITALS (12 sets, daily range): BP systolic 93–124; BP diastolic 58–67; TEMP 97.7–97.9; O2SAT 92–99
[2024-03-13 08:06] LABS: IMMUNOGLOBULIN A, SERUM 88 mg/dL (64-422); IMMUNOGLOBULIN G, SERUM 410 mg/dL (586-1602); IMMUNOGLOBULIN M, SERUM 54 mg/dL (26-217)
[2024-03-13] MEDS: methylPREDNISolone SOD SUCC 125 MG/2ML VIAL IV SCH (09:30)
[2024-03-13] MEDS ORDERED: IOHEXOL-300 100 ML VIAL IV ONE ×2 (10:13→11:53)
[2024-03-13] MEDS ORDERED: CT SWABBABLE VALVE TRANS SET 1 EA INFUS.SET MC ONE (10:13)
[2024-03-13] MEDS ORDERED: IV NS 0.9% 250 ML IV ONE (10:13)
[2024-03-13 11:06] LABS: FREE KAPPA LT CHAINS SERUM 8.6 mg/L (3.3-19.4); FREE LAMBDA LT CHAIN SERUM 8.6 mg/L (5.7-26.3)
[2024-03-13 12:09] LABS: FOLIC ACID 4.7 ng/mL (>3.0)
[2024-03-13] MEDS: FERROUS SULFATE (325 MG) 325 MG/TAB TABLET PO SCH (16:26)
[2024-03-14] VITALS (9 sets, daily range): BP systolic 106–127; BP diastolic 60–78; TEMP 97.9–98.1; O2SAT 95–100
[2024-03-14 07:10] LABS: EOSINOPHILS # (AUTO) 0.1 K/uL (0.0-0.7); EOSINOPHILS % (AUTO) 0.5 % (0.0-6.0); HEMATOCRIT 29 % (33-45); HEMOGLOBIN 9.6 g/dL (11.5-14.8); LYMPHOCYTES # (AUTO) 1.1 K/uL (0.8-4.8); MEAN CORPUSCULAR HEMOGLOBIN 32 PG (26.0-33.0); MEAN CORPUSCULAR HGB CONC 33 g/dl (31.0-36.0); MEAN CORPUSCULAR VOLUME 96 fL (82-100); MONOCYTES # (AUTO) 0.7 K/uL (0.1-1.30); MONOCYTES % (AUTO) 5.3 % (2.0-12.0); NEUTROPHILS # (AUTO) 11.5 K/uL (1.8-8.9); NEUTROPHILS % (AUTO) 86.2 % (43.0-81.0); PLATELET COUNT (AUTO) 222 K/uL (150-450); RED BLOOD CELL COUNT(AUTO) 3.01 MIL/uL (4.0-5.2); RED CELL DISTRIBUTION WIDTH 15.6 % (11.5-15.0); WHITE BLOOD COUNT (AUTO) 13.3 K/uL (4.3-11.0)
[2024-03-14 07:12] LABS: CALCIUM, SERUM 8.5 mg/dL (8.5-10.1); CREATININE 0.6 mg/dL (0.6-1.3); POTASSIUM 4.1 mmol/L (3.5-5.1)
[2024-03-14 12:13] LABS: CHOLESTEROL 169 mg/dL (<200); HDL CHOLESTEROL 76 mg/dL (40-60); LDL 67 mg/dL (0-99); TRIGLYCERIDES 118 mg/dL (30-150)
[2024-03-15 05:32] VITALS: BP 142/64; TEMP 98; O2SAT 98
[2024-03-15 06:57] LABS: BASOPHILS % (AUTO) 0.2 % (0.0-2.0); EOSINOPHILS # (AUTO) 0.2 K/uL (0.0-0.7); EOSINOPHILS % (AUTO) 1.9 % (0.0-6.0); HEMATOCRIT 29 % (33-45); HEMOGLOBIN 9.4 g/dL (11.5-14.8); LYMPHOCYTES # (AUTO) 1.5 K/uL (0.8-4.8); MEAN CORPUSCULAR HEMOGLOBIN 31 PG (26.0-33.0); MEAN CORPUSCULAR HGB CONC 33 g/dl (31.0-36.0); MEAN CORPUSCULAR VOLUME 96 fL (82-100); MONOCYTES # (AUTO) 0.8 K/uL (0.1-1.30); MONOCYTES % (AUTO) 6.1 % (2.0-12.0); NEUTROPHILS % (AUTO) 79.8 % (43.0-81.0); PLATELET COUNT (AUTO) 259 K/uL (150-450); RED CELL DISTRIBUTION WIDTH 15.7 % (11.5-15.0); WHITE BLOOD COUNT (AUTO) 12.5 K/uL (4.3-11.0)
[2024-03-15 07:16] LABS: CALCIUM, SERUM 8.7 mg/dL (8.5-10.1); CREATININE 0.6 mg/dL (0.6-1.3); POTASSIUM 3.8 mmol/L (3.5-5.1)
[2024-03-15 08:00] VITALS: BP 125/79; TEMP 98.1; O2SAT 99
[2024-03-15 08:13] VITALS: BP 125/79
[2024-03-15] MEDS ORDERED: PRED20TA PO (10:45)
[2024-03-15] MEDS ORDERED: LEVO750T46 PO (10:45)
[2024-03-15 12:08] LABS: *ANA ANTI-CENTROMERE B AB <0.2 AI (0.0-0.9); *ANA ANTI-DNA(DS) AB, QN <1 IU/mL (0-9); *ANA ANTI-JO-1 <0.2 AI (0.0-0.9); *ANA ANTICHROMATIN ANTIBODY <0.2 AI (0.0-0.9); *ANA RNP ANTIBODIES <0.2 AI (0.0-0.9); *ANA SJOGREN'S ANTI-SS-A <0.2 AI (0.0-0.9); *ANA SJOGREN'S ANTI-SS-B <0.2 AI (0.0-0.9); *ANAANTI-SCLERODERMA-70 AB <0.2 AI (0.0-0.9); *ANASMITH AB <0.2 AI (0.0-0.9)
[2024-03-15 13:20] VITALS: O2SAT 94
[2024-03-15 13:35] VITALS: O2SAT 95
[2024-03-16 02:07] LABS: *SPE A/G RATIO 0.9 (0.7-1.7); *SPE ALBUMIN 2.4 g/dL (2.9-4.4); *SPE ALPHA-1-GLOBULIN 0.4 g/dL (0.0-0.4); *SPE ALPHA-2-GLOBULIN 0.9 g/dL (0.4-1.0); *SPE BETA GLOBULIN 0.9 g/dL (0.7-1.3); *SPE GLOBULIN, TOTAL 2.7 g/dL (2.2-3.9); *SPE M-SPIKE Not Observed g/dL (Not Observed); *SPE PROTEIN TOTAL 5.1 g/dL (6.0-8.5); *SPEGAMMA GLOBULIN 0.5 g/dL (0.4-1.8)
== END 2024-03-15 18:54 | disposition home health service (06) | DRG 193 ==
LOC: ER 05:44 → TRANSITION 10:58 → TELE-TD 20:14 → MEDSG1 03-10 17:59
PROVIDERS: ADMIT Internal Medicine; ATTEND Internal Medicine
PROC: 5A09357 Assistance with Respiratory Ventilation, Less than 24 Consecutive Hours, Continuous Positive Airway Pressure (ICD-10-PCS; principal; 2024-03-09)
DX: J15.9 Unspecified bacterial pneumonia (principal); I21.A1 Myocardial infarction type 2; J96.21 Acute and chronic respiratory failure with hypoxia; J96.22 Acute and chronic respiratory failure with hypercapnia; J44.0 Chronic obstructive pulmonary disease with (acute) lower respiratory infection; J44.1 Chronic obstructive pulmonary disease with (acute) exacerbation; J43.2 Centrilobular emphysema; Z99.81 Dependence on supplemental oxygen; E66.01 Morbid (severe) obesity due to excess calories; Z68.38 Body mass index [BMI] 38.0-38.9, adult; Z71.3 Dietary counseling and surveillance; Z87.891 Personal history of nicotine dependence; Z87.440 Personal history of urinary (tract) infections; Z85.3 Personal history of malignant neoplasm of breast; Z90.710 Acquired absence of both cervix and uterus; Z92.3 Personal history of irradiation; Z92.21 Personal history of antineoplastic chemotherapy; N63.20 Unspecified lump in the left breast, unspecified quadrant; Z88.5 Allergy status to narcotic agent; Z79.810 Long term (current) use of selective estrogen receptor modulators (SERMs); Z79.899 Other long term (current) drug therapy; G47.33 Obstructive sleep apnea (adult) (pediatric); E78.5 Hyperlipidemia, unspecified; K44.9 Diaphragmatic hernia without obstruction or gangrene; E03.9 Hypothyroidism, unspecified; I10 Essential (primary) hypertension; D35.02 Benign neoplasm of left adrenal gland; L90.5 Scar conditions and fibrosis of skin
CPT/HCPCS: 36415; 36600; 71045-TC; 71250-TC; 71270-TC; 74178; 76641-TC; 80048-TC; 80053-TC; 80061-TC; 80076-TC; 82378; 82607-TC; 82728-TC; 82784; 82803-TC; 83540-TC; 83605-TC; 83735-TC; 84100-TC; 84155; 84165; 84443-TC; 84484-TC; 85025-TC; 85730-TC; 86140-TC; 86225; 86235; 86300; 86334; 86431-TC; 87040-TC; 87081-TC; 87086-TC; 93307-TC; 94660; 94760-TC; 94761-TC; 94799-TC; 97110-TC; 97116-TC; 97530-TC; 97535-TC; A4216; A4223; G0378; J1644; J1650; J1956; J2919; J7050; Q9967

== ENCOUNTER 2024-12-10 17:30 | Inpatient (IN) | payer MEDICARE ==
[~2024-12-10] VITALS: Ht 157.5 cm; Wt 89.0 kg
[~2024-12-10 17:30] MED LIST changes: -CEFD300C3 PO; -LEVO250T59 PO; +LEVO750T46 PO
[2024-12-10] MEDS: IV NS 0.9% 1,000 ML BAG IV ONE (18:27)
[2024-12-10 18:44] LABS: PLATELET COUNT (AUTO) 327 K/uL (150-450); RED BLOOD CELL COUNT(AUTO) 3.39 MIL/uL (4.0-5.2); RED CELL DISTRIBUTION WIDTH 16.5 % (11.5-15.0); WHITE BLOOD COUNT (AUTO) 7.7 K/uL (4.3-11.0)
[2024-12-10 18:50] LABS: CALCIUM, SERUM 8.8 mg/dL (8.5-10.1); CREATININE 0.6 mg/dL (0.6-1.3); SODIUM SERUM 139 mmol/L (136-145); UREA NITROGEN, BLOOD 15 mg/dL (7-18)
[2024-12-10 18:52] LABS: INR 0.96 (0.91-1.10)
[2024-12-10 18:56] LABS: LACTIC ACID 1.0 mmol/L (0.4-2.0)
[2024-12-10 19:03] LABS: ASPARTATE AMINOTRANSFERASE 15 U/L (15-37); TOTAL PROTEIN, SERUM 6.2 g/dL (6.4-8.2)
[2024-12-10 20:09] LABS: ABG BASE EXCESS 5.5 mmol/L (-2.0-3.0); ABG OXYGEN SATURATION 95.5 % (94.0-98.0); ABG PCO2 53.0 mmHg (32.0-45.0); ABG PH 7.388 (7.350-7.450); ABG PO2 87.2 mmHg (83.0-108.0); ABG TOTAL HEMOGLOBIN 7.9 G/dL (12.0-16.0); FLOW, BLOOD GAS 2.00 L/min (0.00-30.00); FRACTIONATED INSPIRED OXYGEN 28.0 %; SITE, ABG RIGHT RADIAL
[2024-12-10 21:09] LABS: APPEARANCE,URINE SLIGHTLY CLOUDY (CLEAR); BLOOD, URINE NEGATIVE Ery/uL (NEGATIVE); LEUKOCYTE ESTERASE ,URINE TRACE (NEGATIVE); NITRITE, URINE POSITIVE (NEGATIVE); UGLUCOSE NEGATIVE (NEGATIVE)
[2024-12-10 21:21] LABS: ADD URINE CULTURE YES; SQUAMOUS EPITHELIAL CELL,UR Few /HPF (None Seen)
[2024-12-10] MEDS ORDERED: MAGNESIUM HYDROXIDE 30 ML UDC PO PRN (22:00)
[2024-12-10] MEDS ORDERED: ACETAMINOPHEN 325 MG TABLET PO PRN (22:00)
[2024-12-10] MEDS ORDERED: Z GUARD REMEDY 4 OZ OINT TP PRN (22:00)
[2024-12-10] MEDS: ENOXAPARIN SODIUM 40 MG/0.4 ML DISP.SYRIN SQ SCH (22:00)
[2024-12-10] MEDS ORDERED: ONDANSETRON HCL/PF 4 MG/2 ML VIAL IVP PRN (22:00)
[2024-12-10] MEDS ORDERED: MAG HYDROX/AL HYDROX/SIMETH 30 ML UDC PO PRN (22:00)
[2024-12-10 22:15] VITALS: BP 114/57; TEMP 97.3; O2SAT 96
[2024-12-10 22:50] VITALS: BP 125/80; TEMP 98.1; O2SAT 95
[2024-12-10] MEDS: NITROFURANTOIN/MONOHYDRATE MACROCRYSTALS 100 MG CAPSULE PO SCH (23:48)
[2024-12-11] MEDS: HYDROCODONE/APAP 5/325MG TABLET PO PRN (01:08)
[2024-12-11 01:35] LABS: OCCULT BLOOD STOOL NEGATIVE (NEGATIVE)
[2024-12-11] MEDS ORDERED: GABA100C PO (06:57)
[2024-12-11] MEDS ORDERED: OMEP20TA5 PO (06:57)
[2024-12-11] MEDS ORDERED: IRON-16 PO (06:57)
[2024-12-11] MEDS ORDERED: UMEC1BLS IH (06:57)
[2024-12-11 07:27] LABS: PLATELET COUNT (AUTO) 336 K/uL (150-450); RED BLOOD CELL COUNT(AUTO) 2.63 MIL/uL (4.0-5.2); RED CELL DISTRIBUTION WIDTH 16.3 % (11.5-15.0); WHITE BLOOD COUNT (AUTO) 6.6 K/uL (4.3-11.0)
[2024-12-11] MEDS: PANTOPRAZOLE 40 MG TABLET.DR PO SCH (07:30)
[2024-12-11 07:46] LABS: CALCIUM, SERUM 8.6 mg/dL (8.5-10.1); CREATININE 0.6 mg/dL (0.6-1.3); PHOSPHORUS 4.3 mg/dL (2.5-4.9); SODIUM SERUM 145.0 mmol/L (136-145); UREA NITROGEN, BLOOD 16.0 mg/dL (7-18)
[2024-12-11 08:00] VITALS: BP 105/64; TEMP 97.7; O2SAT 99
[2024-12-11] MEDS ORDERED: OHTUVAYRE IH (08:15)
[2024-12-11] MEDS ORDERED: FERR-68 PO (08:15)
[2024-12-11] MEDS ORDERED: SODI1KIT NEB (08:15)
[2024-12-11] MEDS ORDERED: LAMO25TA5 PO (08:15)
[2024-12-11] MEDS ORDERED: OMEP20CA15 PO (08:15)
[2024-12-11 08:21] LABS: IRON, SERUM 14.0 ug/dl (50-175)
[2024-12-11] MEDS ORDERED: CT SWABBABLE VALVE TRANS SET 1 EA INFUS.SET MC ONE (08:50)
[2024-12-11] MEDS ORDERED: IV NS 0.9% 250 ML IV ONE (08:50)
[2024-12-11] MEDS ORDERED: IOHEXOL-300 100 ML VIAL IV ONE (08:50)
[2024-12-11 12:00] VITALS: BP 123/44; TEMP 97.6; O2SAT 98
[2024-12-11] MEDS: METRONIDAZOLE 500 MG TABLET PO SCH (13:53)
[2024-12-11] MEDS: CIPROFLOXACIN HCL 250 MG TABLET PO SCH (13:53)
[2024-12-11] MEDS: SOD FERRIC GLUC 125 MG in IV NS 0.9% 100 ML IV SCH (14:46)
[2024-12-11 16:00] VITALS: BP 118/60; TEMP 97.5; O2SAT 98
[2024-12-11 20:00] VITALS: BP 127/53; TEMP 97.5; O2SAT 97
[2024-12-11 22:25] VITALS: O2SAT 99
[2024-12-11 22:35] VITALS: O2SAT 100
[2024-12-11] MEDS: IPRATROPIUM NEB FS 0.5 MG/2.5 ML AMPUL.NEB NEB PRN (22:38)
[2024-12-11] MEDS: ALBUTEROL FS 2.5 MG/0.5 ML VIAL.NEB NEB PRN (22:38)
[2024-12-12 07:36] LABS: PLATELET COUNT (AUTO) 333 K/uL (150-450); RED BLOOD CELL COUNT(AUTO) 2.90 MIL/uL (4.0-5.2); RED CELL DISTRIBUTION WIDTH 16.2 % (11.5-15.0); WHITE BLOOD COUNT (AUTO) 6.4 K/uL (4.3-11.0)
[2024-12-12 08:00] VITALS: BP 141/68; TEMP 97.5; O2SAT 98
[2024-12-12 08:18] LABS: CALCIUM, SERUM 8.4 mg/dL (8.5-10.1); CREATININE 0.6 mg/dL (0.6-1.3); SODIUM SERUM 143.0 mmol/L (136-145); UREA NITROGEN, BLOOD 16.0 mg/dL (7-18)
[2024-12-12] MEDS: METOPROLOL SUCCINATE 25 MG TAB.SR.24H PO SCH ×2 (09:00→11:02)
[2024-12-12] MEDS: LEVOTHYROXINE SODIUM 75 MCG TABLET PO SCH (09:00)
[2024-12-12] MEDS ORDERED: Medication Not On Formulary EA (Ipratropium/Albuterol Sulfate (Duoneb 2.5-0.5 Mg/3 Ml So IH PRN (09:00)
[2024-12-12] MEDS: GABAPENTIN 300 MG CAPSULE PO SCH ×2 (09:47→21:04)
[2024-12-12] MEDS: SERTRALINE HCL 50 MG TABLET PO SCH (09:48)
[2024-12-12] MEDS: TAMOXIFEN CITRATE 10 MG TABLET PO SCH (10:57)
[2024-12-12] MEDS: HYDROCODONE/APAP 10/325MG TABLET PO PRN (14:15)
[2024-12-12 20:00] VITALS: BP 116/55; TEMP 97.9; O2SAT 96
[2024-12-13 07:30] VITALS: BP 122/66; TEMP 97.9; O2SAT 96
[2024-12-13 08:09] LABS: PLATELET COUNT (AUTO) 346 K/uL (150-450); RED BLOOD CELL COUNT(AUTO) 2.83 MIL/uL (4.0-5.2); RED CELL DISTRIBUTION WIDTH 16.5 % (11.5-15.0); WHITE BLOOD COUNT (AUTO) 7.1 K/uL (4.3-11.0)
[2024-12-13 08:11] LABS: CALCIUM, SERUM 8.5 mg/dL (8.5-10.1); CREATININE 0.7 mg/dL (0.6-1.3); SODIUM SERUM 143.0 mmol/L (136-145); UREA NITROGEN, BLOOD 14.0 mg/dL (7-18)
[2024-12-13 08:23] LABS: PHOSPHORUS 4.2 mg/dL (2.5-4.9)
[2024-12-13 09:20] VITALS: BP 122/66
[2024-12-13] MEDS: PANTOPRAZOLE 40 MG TABLET.DR PO SCH (09:22)
[2024-12-13] MEDS ORDERED: ASCO500C18 PO (10:22)
[2024-12-13] MEDS ORDERED: CIPR500T5 PO (10:22)
[2024-12-13] MEDS ORDERED: FERR325T23 PO (10:22)
[2024-12-13] MEDS ORDERED: METR500T PO (10:22)
[2024-12-13] MEDS ORDERED: ONDA4TAB11 PO (10:31)
[2024-12-13] MEDS ORDERED: DICY10CA37 PO (10:31)
== END 2024-12-13 17:43 | disposition home health service (06) | DRG 690 ==
LOC: ER 17:36 → TELE 21:27
PROVIDERS: ADMIT Registered Nurse Psychiatric/Mental Health; ATTEND Nurse Practitioner Family
DX: N39.0 Urinary tract infection, site not specified (principal); K57.92 Diverticulitis of intestine, part unspecified, without perforation or abscess without bleeding; E66.2 Morbid (severe) obesity with alveolar hypoventilation; E87.29 Other acidosis; J44.9 Chronic obstructive pulmonary disease, unspecified; E78.5 Hyperlipidemia, unspecified; I11.0 Hypertensive heart disease with heart failure; I50.9 Heart failure, unspecified; J43.9 Emphysema, unspecified; Z85.3 Personal history of malignant neoplasm of breast; Z88.5 Allergy status to narcotic agent; Z88.1 Allergy status to other antibiotic agents; Z79.51 Long term (current) use of inhaled steroids; Z79.890 Hormone replacement therapy; Z79.899 Other long term (current) drug therapy; B96.89 Other specified bacterial agents as the cause of diseases classified elsewhere; Z99.81 Dependence on supplemental oxygen; D64.9 Anemia, unspecified; F32.A Depression, unspecified; F41.9 Anxiety disorder, unspecified; Z86.19 Personal history of other infectious and parasitic diseases; E03.9 Hypothyroidism, unspecified; E66.9 Obesity, unspecified; Z90.711 Acquired absence of uterus with remaining cervical stump; Z68.35 Body mass index [BMI] 35.0-35.9, adult; K52.9 Noninfective gastroenteritis and colitis, unspecified; Z87.891 Personal history of nicotine dependence; J47.9 Bronchiectasis, uncomplicated; M79.7 Fibromyalgia; R09.02 Hypoxemia; Z79.60 Long term (current) use of unspecified immunomodulators and immunosuppressants
CPT/HCPCS: 36415; 36600; 70450-TC; 71045-TC; 80048-TC; 80076-TC; 81001; 82272-TC; 82378; 82803-TC; 83540-TC; 83605-TC; 83735-TC; 83880; 84100-TC; 84443-TC; 84484-TC; 85025-TC; 85730-TC; 87040-TC; 87045-TC; 87086-TC; 87186-TC; 94799-TC; 97110-TC; 97116-TC; 97530-TC; A4223; G0378; J1650; J2916; J7030; J7050; Q9967